=== PATIENT | male | born 1975 ===

== ENCOUNTER 2017-07-08 15:21 | Emergency (ER) | payer SELFPAY ==
[~2017-07-08] VITALS: Ht 180.3 cm; Wt 79.4 kg
== END 2017-07-08 16:15 | disposition home or self-care (01) ==
LOC: ER 15:21
DX: R51 Headache (principal); Z90.89 Acquired absence of other organs
CPT/HCPCS: 96374; 96375; 99283; J1885; J2550

== ENCOUNTER 2017-07-09 22:05 | Emergency (ER) | payer SELFPAY ==
[~2017-07-09] VITALS: Ht 182.9 cm; Wt 88.5 kg
== END 2017-07-09 23:13 | disposition home or self-care (01) ==
LOC: ER 22:05
DX: R51 Headache (principal); R07.89 Other chest pain; F17.200 Nicotine dependence, unspecified, uncomplicated
CPT/HCPCS: 93005; 93010; 96372; 99283; J1885